=== PATIENT | male | born 1985 | race Hispanic/Latino ===

== ENCOUNTER 2020-07-16 19:16 | Inpatient (IN) | payer OTHER ==
[~2020-07-16] VITALS: Ht 162.6 cm; Wt 84.4 kg
[~2020-07-16 19:16] MED LIST: DEXAMETHASONE SOD PHOS INJ 4 MG/ML VIAL ONE; LIDOCAINE HCL 2% LOCAL INJ 5 ML SDV VIAL INJ ONE; ONDANSETRON HCL INJ 2MG/ML 2ML 2 MG/ML VIAL ONE; PROPOFOL IV EMULSION 10 MG/ML 20 ML VIAL ONE; ROCURONIUM BROMIDE 10 MG/ML 5ML VIAL IV ONE; SEVOFLURANE INHAL SOLN 250 ML PEN BTL ONE; SUCCINYLCHOLINE CHLORIDE 20 MG/ML 10ML VIAL ONE
[2020-07-16] MEDS ORDERED: SODIUM CHLORIDE 0.9% 1000ML 1,000 ML IV SCH (20:30)
[2020-07-16] MEDS: SODIUM CHLORIDE 0.9% 1000ML 1,000 ML IV SCH (20:35)
[2020-07-16] MEDS ORDERED: METRONIDAZOLE 500MG/NS 100ML 100 ML IV ONE (20:37)
[2020-07-16] MEDS ORDERED: PIPER-TAZ 3.375 GM 50 ML ONE (20:37)
[2020-07-16] MEDS ORDERED: SODIUM CHLORIDE 0.9% 1000ML 1,000 ML ONE (20:38)
[2020-07-16] MEDS ORDERED: FAMOTIDINE 20 MG/2 ML VIAL IV STA (20:44)
[2020-07-16] MEDS ORDERED: GENTAMICIN 120MG/NS 100ML 100 ML IV ONE (21:00)
[2020-07-16] MEDS ORDERED: ONDANSETRON HCL INJ 2MG/ML 2ML 2 MG/ML VIAL IV PRN (21:00)
[2020-07-16] MEDS ORDERED: HYDROMORPHONE 1MG/1ML INJ IV PRN (21:00)
[2020-07-16] MEDS ORDERED: GENTAMICIN SULFATE 40 MG/ML 2 ML VIAL ONE (21:03)
[2020-07-16] MEDS ORDERED: FAMOTIDINE 20 MG/2 ML VIAL IV ONE (21:04)
[2020-07-16 23:52] VITALS: BP 103/64
[2020-07-17] VITALS (10 sets, daily range): BP systolic 90–109; BP diastolic 61–73
[2020-07-17] MEDS ORDERED: PIPER-TAZ 3.375 GM / NS 50ML IV SCH
[2020-07-17] MEDS: SODIUM CHLORIDE 0.9% 1000ML 1,000 ML IV SCH ×3 (01:56→21:03)
[2020-07-17] MEDS: PIPER-TAZ 3.375 GM 50 ML IV SCH ×5 (03:11→23:52)
[2020-07-17] MEDS ORDERED: ACETAMINOPHEN 325 MG TAB PO PRN (07:15)
[2020-07-17 07:46] LABS: BASOPHILS % 0.4 % (0.0-1.0); EOSINOPHILS # (AUTO) 0.1 (0.0-0.4); EOSINOPHILS % 1.2 % (0.0-6.0); HEMATOCRIT 41.3 % (38.2-49.6); LYMPHOCYTES # (AUTO) 1.9 (1.0-3.2); LYMPHOCYTES % 17.1 % (18.0-39.1); MEAN CORPUSCULAR HEMOGLOBIN 30.8 pg (28-32); MEAN CORPUSCULAR HGB CONC 33.9 g/dL (31-35); MONOCYTES # (AUTO) 1.3 (0.2-0.8); MONOCYTES % 11.3 % (4.4-11.3); NEUTROPHILS # (AUTO) 7.7 (2.1-6.9); NEUTROPHILS % 68.8 % (38.7-80.0); PLATELET COUNT 213 x10e3/uL (140-360); RED BLOOD COUNT 4.54 x10e6/uL (4.3-5.7); RED CELL DISTRIBUTION WIDTH 13.1 % (11.7-14.4)
[2020-07-17] MEDS: FAMOTIDINE 20 MG/2 ML VIAL IV SCH ×2 (08:13→15:53)
[2020-07-17] MEDS: NICOTINE 14 MG/EA PATCH TOP SCH (08:14)
[2020-07-17 08:17] LABS: ALANINE AMINOTRANSFERASE 115 IU/L (0-55); ALBUMIN 2.6 g/dL (3.5-5.0); ALKALINE PHOSPHATASE 187 IU/L (40-150); ANION GAP 14.8 mmol/L (8-16); BILIRUBIN,DIRECT 5.7 mg/dL (0.0-0.5); BLOOD UREA NITROGEN 23 mg/dL (7-26); BUN/CREATININE RATIO 17 (6-25); CALCIUM 8.5 mg/dL (8.4-10.2); CARBON DIOXIDE 22 mmol/L (22-29); CHLORIDE 100 mmol/L (98-107); CREATININE, SERUM 1.32 mg/dL (0.72-1.25); EST GLOMERULAR FILTRATION RATE > 60 ML/MIN (60-); GLUCOSE 105 mg/dL (74-118); POTASSIUM 3.8 mmol/L (3.5-5.1); SODIUM 133 mmol/L (136-145)
[2020-07-17 10:19] LABS: INR 0.95; PROTHROMBIN TIME 13.2 seconds (11.9-14.5)
[2020-07-17 10:20] LABS: PARTIAL THROMBOPLASTIN TIME 36.2 seconds (23.8-35.5)
[2020-07-18] VITALS (8 sets, daily range): BP systolic 102–124; BP diastolic 56–95
[2020-07-18] MEDS: SODIUM CHLORIDE 0.9% 1000ML 1,000 ML IV SCH ×3 (05:17→21:00)
[2020-07-18] MEDS: PIPER-TAZ 3.375 GM 50 ML IV SCH ×3 (05:25→16:59)
[2020-07-18 07:14] LABS: BASOPHILS # (AUTO) 0.1 (0.0-0.1); BASOPHILS % 0.5 % (0.0-1.0); EOSINOPHILS # (AUTO) 0.3 (0.0-0.4); EOSINOPHILS % 2.4 % (0.0-6.0); HEMATOCRIT 42.1 % (38.2-49.6); HEMOGLOBIN 14.3 g/dL (14.0-18.0); LYMPHOCYTES # (AUTO) 2.3 (1.0-3.2); LYMPHOCYTES % 22.1 % (18.0-39.1); MEAN CORPUSCULAR HEMOGLOBIN 31.4 pg (28-32); MEAN CORPUSCULAR VOLUME 92.5 fL (81-99); MONOCYTES # (AUTO) 0.9 (0.2-0.8); MONOCYTES % 8.9 % (4.4-11.3); NEUTROPHILS # (AUTO) 6.7 (2.1-6.9); NEUTROPHILS % 63.9 % (38.7-80.0); PLATELET COUNT 243 x10e3/uL (140-360); RED BLOOD COUNT 4.55 x10e6/uL (4.3-5.7); RED CELL DISTRIBUTION WIDTH 13.5 % (11.7-14.4)
[2020-07-18 07:32] LABS: ANION GAP 17.1 mmol/L (8-16); CALCIUM 8.5 mg/dL (8.4-10.2); CREATININE, SERUM 1.38 mg/dL (0.72-1.25); POTASSIUM 4.1 mmol/L (3.5-5.1)
[2020-07-18] MEDS: NICOTINE 14 MG/EA PATCH TOP SCH ×2 (08:40→08:44)
[2020-07-18] MEDS: FAMOTIDINE 20 MG/2 ML VIAL IV SCH ×2 (08:40→16:59)
[2020-07-18] MEDS ORDERED: IOPAMIDOL 300MG/ML 50ML INFUS..BTL IV ONE (12:04)
[2020-07-18 13:54] LABS: ALBUMIN 2.6 g/dL (3.5-5.0); BILIRUBIN,DIRECT 3.5 mg/dL (0.0-0.5)
[2020-07-19] VITALS (8 sets, daily range): BP systolic 107–134; BP diastolic 64–94
[2020-07-19] MEDS: PIPER-TAZ 3.375 GM 50 ML IV SCH ×4 (00:46→17:48)
[2020-07-19] MEDS: SODIUM CHLORIDE 0.9% 1000ML 1,000 ML IV SCH ×3 (00:47→20:33)
[2020-07-19] MEDS ORDERED: IOPAMIDOL 300MG/ML 50ML INFUS..BTL IV ONE (06:41)
[2020-07-19] MEDS ORDERED: SUGAMMADEX SODIUM 200 MG/2 ML VIAL IV ONE (06:50)
[2020-07-19] MEDS ORDERED: GLUCAGON FOR INJ 1 MG VIAL ONE ×2 (07:40→07:42)
[2020-07-19] MEDS: NICOTINE 14 MG/EA PATCH TOP SCH (07:44)
[2020-07-19] MEDS ORDERED: SODIUM CHLORIDE 0.9% 1000ML 3,000 ML IV SCH (09:30)
[2020-07-19 09:40] LABS: BASOPHILS # (AUTO) 0.1 (0.0-0.1); BASOPHILS % 0.5 % (0.0-1.0); EOSINOPHILS # (AUTO) 0.3 (0.0-0.4); HEMATOCRIT 45.1 % (38.2-49.6); HEMOGLOBIN 14.8 g/dL (14.0-18.0); LYMPHOCYTES # (AUTO) 1.9 (1.0-3.2); LYMPHOCYTES % 19.8 % (18.0-39.1); MEAN CORPUSCULAR HEMOGLOBIN 30.5 pg (28-32); MEAN CORPUSCULAR HGB CONC 32.8 g/dL (31-35); MONOCYTES # (AUTO) 0.6 (0.2-0.8); NEUTROPHILS # (AUTO) 6.5 (2.1-6.9); NEUTROPHILS % 68.7 % (38.7-80.0); PLATELET COUNT 300 x10e3/uL (140-360); RED BLOOD COUNT 4.85 x10e6/uL (4.3-5.7); RED CELL DISTRIBUTION WIDTH 13.4 % (11.7-14.4)
[2020-07-19 10:05] LABS: ANION GAP 14.9 mmol/L (8-16); CALCIUM 8.9 mg/dL (8.4-10.2); CREATININE, SERUM 1.43 mg/dL (0.72-1.25); POTASSIUM 3.9 mmol/L (3.5-5.1)
[2020-07-19] MEDS: FAMOTIDINE 20 MG/2 ML VIAL IV SCH ×2 (10:36→17:48)
[2020-07-19 12:10] LABS: LYMPHOCYTES % (MANUAL) 23 % (19-48); MONOCYTES % (MANUAL) 5 % (3.4-9.0); NEUTROPHILS % (MANUAL) 72 % (40-74)
[2020-07-19 12:11] LABS: HYPOCHROMASIA SLIGHT; PLATELET ESTIMATE ADEQUATE; PLATELET MORPHOLOGY COMMENT NORMAL; RBC MORPHOLOGY COMMENT NORMAL
[2020-07-19] MEDS ORDERED: PROPOFOL IV EMULSION 10 MG/ML 20 ML VIAL ONE (13:05)
[2020-07-19] MEDS ORDERED: LIDOCAINE HCL 2% LOCAL INJ 5 ML SDV VIAL INJ ONE (13:05)
[2020-07-20] VITALS: BP 103/63
[2020-07-20] MEDS: PIPER-TAZ 3.375 GM 50 ML IV SCH ×2 (00:36→05:20)
[2020-07-20 04:00] VITALS: BP 96/50
[2020-07-20] MEDS: SODIUM CHLORIDE 0.9% 1000ML 1,000 ML IV SCH (05:20)
[2020-07-20 05:45] LABS: ALBUMIN 2.7 g/dL (3.5-5.0); BILIRUBIN,DIRECT 2.2 mg/dL (0.0-0.5)
[2020-07-20] MEDS: NICOTINE 14 MG/EA PATCH TOP SCH (08:14)
[2020-07-20] MEDS: FAMOTIDINE 20 MG/2 ML VIAL IV SCH (08:14)
[2020-07-20 08:31] VITALS: BP 131/73
[2020-07-20 08:41] VITALS: BP 131/73
[2020-07-20] MEDS ORDERED: NICODERM CQ1 EAC1 TOP (10:18)
[2020-07-20] MEDS ORDERED: TYLENOL325 MG PO (10:18)
[2020-07-20] MEDS ORDERED: KEFLEX125 MG/5 M PO (10:18)
[2020-07-20] MEDS ORDERED: FLAGYL500 MG PO (10:18)
[2020-07-20] MEDS ORDERED: ONDANSETRON HCL 4 MG ORAL DISINTEGRATING TAB PO PRN (12:45)
== END 2020-07-20 13:00 | disposition home or self-care (01) | DRG 445 ==
LOC: FSED 19:53 → ERHOLD 20:55 → MED/SURG 22:32
PROVIDERS: ADMIT Internal Medicine; ATTEND Internal Medicine
PROC: 0F798DZ Dilation of Common Bile Duct with Intraluminal Device, Via Natural or Artificial Opening Endoscopic (ICD-10-PCS; principal; 2020-07-16)
PROC: BF141ZZ Fluoroscopy of Gallbladder, Bile Ducts and Pancreatic Ducts using Low Osmolar Contrast (ICD-10-PCS; 2020-07-19)
PROC: 0FC98ZZ Extirpation of Matter from Common Bile Duct, Via Natural or Artificial Opening Endoscopic (ICD-10-PCS; 2020-07-19 07:00)
DX: K80.51 Calculus of bile duct without cholangitis or cholecystitis with obstruction (principal); R17 Unspecified jaundice; K29.80 Duodenitis without bleeding; K31.9 Disease of stomach and duodenum, unspecified; Z20.822 Contact with and (suspected) exposure to COVID-19; F17.210 Nicotine dependence, cigarettes, uncomplicated; E66.9 Obesity, unspecified; Z68.31 Body mass index [BMI] 31.0-31.9, adult
CPT/HCPCS: 36415; 43260; 43274; 74328; 80048; 80076; 84484; 85025; 85610; 85730; 87040; 96361; 99284; J0330; J1100; J1170; J1580; J1610; J2001; J2405; J2543; J7030; U0002